=== PATIENT | male | born 1990 | race Caucasian/White ===

== ENCOUNTER 2023-07-01 15:59 | Outpatient (CLI) | payer BC, SELFPAY ==
[2023-07-01 10:15] LABS: Abs Immature Grans 0.03 10^3/uL (0.0-0.06); Absolute Basophil Count 0.03 10^3/uL (0.0-0.2); Absolute Eosinophil Count 0.12 10^3/uL (0.0-0.7); Absolute Lymphocyte Count 1.39 10^3/uL (1.2-3.4); Basophils % 0.5; HCT 42.9 % (40.0-50.0); HGB 14.8 g/dL (13.5-17.5); Immature Grans % 0.5; Lymphocytes % 22.9; MCH 31.8 pg (27.0-33.0); MCHC 34.5 % (32.0-36.0); MCV 92 fL (80-95); MPV 10.8 fL (8.0-11.0); Monocytes % 8.2; Neutrophils % 65.9; Platelet Count 151 10^3/uL (130-400); RBC 4.65 10^6/uL (4.36-5.78); RDW 12.6 % (11.8-14.1); RDW-SD 42.6 fL; WBC 6.07 10^3/uL (4.4-10.8)
[2023-07-01 11:01] LABS: ALT 84 U/L (16-63); AST 36 U/L (15-37); Alkaline Phosphatase 88 U/L (46-116); Anion Gap 8.9 mmol/L (3-11); BUN 17 mg/dL (7-18); Bilirubin, Total 0.4 mg/dL (0.2-1.0); CO2 28.1 mmol/L (21.0-32.0); CREATININE 1.1 mg/dL (0.70-1.30); Calcium 9.2 mg/dL (8.5-10.1); Calculated LDL 133 mg/dL (<100); Chloride 105 mmol/L (98-107); Cholesterol 214 mg/dL (<200); Glucose 107 mg/dL (74-106); HDL Cholesterol 37 mg/dL (40-60); Potassium 3.6 mmol/L (3.5-5.1); Sodium 142 mmol/L (136-145); Total Protein 7.3 g/dL (6.4-8.2); Triglyceride 220 mg/dL (<150)
[2023-07-01 11:52] LABS: TSH (W/Ref FT4) 191.54 uIU/mL (0.36-3.74)
[2023-07-01 12:19] LABS: FREE T4 0.38 ng/dL (0.76-1.46)
== END 2023-07-01 16:00 | disposition home or self-care (01) ==
LOC: LBO 16:01
PROVIDERS: Visit Provider Nurse Practitioner Family
DX: Z13.6 Encounter for screening for cardiovascular disorders (principal); E78.5 Hyperlipidemia, unspecified; I10 Essential (primary) hypertension; Z00.00 Encounter for general adult medical examination without abnormal findings
CPT/HCPCS: 36415; 80053; 80061; 84439; 84443; 85025

== ENCOUNTER 2023-07-16 16:34 | Emergency (ER) | payer BC, SELFPAY ==
[2023-07-16 16:41] VITALS: BP 127/87; PULSE 106; RESP 16; TEMP 36.2; O2SAT 98
--- NOTE | 2023-07-16 16:45 | DI.RAD_ITS ---
Exam(s) XR CHEST 2V PA LATERAL EXAM: XR CHEST 2V PA LATERAL CLINICAL HISTORY: Cough. TECHNIQUE: 2D digital imaging was performed. COMPARISON: No exams were available for comparison FINDINGS: 2 views: Heart size is normal. The mediastinum is not widened. Lungs are clear. No infiltrates nor pleural effusions. IMPRESSION: No acute pulmonary findings. DATA REPOSITORY: RADIATION DOSE DELIVERED:
--- NOTE | 2023-07-16 17:00 | ED.GENADUL_ITS ---
Discharge Plan Disposition Patient Disposition: Home Condition: Stable Discharge Details Clinical Impression: Influenza B Primary Care Provider: Gabrielle Gandhi ED Provider: Diana Carias Home Meds and New Rx's Prescriptions: New oseltamivir [Tamiflu] 75 mg capsule 75 mg PO BID 5 Days Qty: 10 0RF Continued Aspirin/Acetaminophen/Caffeine [Excedrin Extra Strength Caplet] 1 EACH Tablet 1 ea PO DAILY cyclobenzaprine 10 MG tablet 10 mg PO HS PRN (Reason: Muscle Spasm) Qty: 10 0RF ibuprofen 600 MG tablet 600 mg PO Q6H PRN (Reason: Pain) Qty: 20 0RF levothyroxine 25 mcg tablet 25 mcg PO DAILY Patient Comments: TAKE ONE TABLET BY MOUTH EVERY MORNING benzonatate 100 mg capsule 100 mg PO PRN Patient Comments: TAKE ONE CAPSULE BY MOUTH FOUR TIMES A DAY NEEDED FOR COUGH codeine-guaifenesin 10-100 mg/5 mL liquid 5 ml PO PRN Hold Instructions: Pt Stopped/Never Started Patient Comments: TAKE 15ML BY MOUTH EVERY 4 TO 6 HOURS NEEDED (MAX 90ML PER 24 HOURS) methylprednisolone 4 mg tablets,dose pack 4 mg PO DAILY Patient Comments: FOLLOW PACKAGE DIRECTIONS FOR 6 DAYS albuterol sulfate 90 mcg/actuation HFA aerosol inhaler 2 puff INHALATION QID Patient Comments: INHALE TWO PUFFS BY MOUTH FOUR TIMES A DAY NEEDED FOR COUGH, WHEEZE, AND SHORTNESS OF BREATH cefdinir 300 mg capsule 300 mg PO BID Patient Comments: TAKE ONE CAPSULE BY MOUTH TWICE A DAY FOR 10 DAYS Discharge Instructions Instructions: Influenza (ED) Additional Instructions: The swab was positive for Influenza B. This is a virus. Continue your previously prescribed medications. Follow up with primary care provider in 3-5 days. Return to ED sooner if any worsening or concerns. Please take Tylenol or Ibuprofen with food every 4-6 hours as needed for pain and swelling. Stand Alone Forms: Work Release Referrals: Gabrielle Gandhi [Primary Care Provider] - 5 days Discharge Data Discharge Date/Time-TO BE ENTERED AT DEPARTURE: 07/16/23 18:08 HPI General Mode of arrival: ambulatory . Date/Time Provider Initiated Documentation: 07/16/23 16:45 . Limitations to Documentation: no limitations . Information obtained by: patient, RN notes reviewed and old records reviewed . HPI Narrative: 33 year old female presents with 3 plus weeks of URI type symptoms. Began antibiotics yesterday. Associated with throat swelling, productive cough , fatigue, body aches and trouble sleeping. Has tried multiple cough suppressants and inhalers with little to no relief. Related Data Home Medications Medication Instructions Recorded Confirmed Aspirin/Acetaminophen/Caffeine 1 ea PO DAILY 03/19/17 07/16/23 [Excedrin Extra Strength Caplet] cyclobenzaprine 10 mg tablet 10 mg PO HS PRN Muscle Spasm #10 03/19/17 07/16/23 tabs ibuprofen 600 mg tablet 600 mg PO Q6H PRN Pain ##20 03/19/17 07/16/23 albuterol sulfate 90 mcg/actuation 2 puff inhalation QID 07/16/23 07/16/23 aerosol inhaler benzonatate 100 mg capsule 100 mg PO PRN 07/16/23 07/16/23 cefdinir 300 mg capsule 300 mg PO BID 07/16/23 07/16/23 codeine 10 mg-guaifenesin 100 mg/5 5 ml PO PRN 07/16/23 07/16/23 mL oral liquid levothyroxine 25 mcg tablet 25 mcg PO DAILY 07/16/23 07/16/23 methylprednisolone 4 mg tablets in 4 mg PO DAILY 07/16/23 07/16/23 a dose pack oseltamivir 75 mg capsule (Tamiflu) 75 mg PO BID 5 days #10 caps 07/16/23 Previous Rx's Medication Instructions Recorded cyclobenzaprine 10 mg tablet 10 mg PO HS PRN Muscle Spasm #10 03/19/17 tabs ibuprofen 600 mg tablet 600 mg PO Q6H PRN Pain ##20 03/19/17 oseltamivir 75 mg capsule (Tamiflu) 75 mg PO BID 5 days #10 caps 07/16/23 Allergies Allergy/AdvReac Type Severity Reaction Status Date / Time No Known Allergies Allergy Unverified 07/16/23 16:36 General Stated Complaint: RespSymp GRUPO: 3 Review of Systems All systems reviewed & are unremarkable except as noted in HPI and below ENT Ears, Nose, Mouth, and Throat: Reports throat swelling Cardiovascular Cardiovascular: Reports dyspnea Respiratory Respiratory: Reports as per HPI, Reports chest congestion, Reports cough, Reports excessive phlegm production and Reports dyspnea Allergic/Immunologic Allergic/Immunologic: Reports throat swelling Exam Narrative Exam Narrative: Constitutional: Alert and oriented x3. Appears stated age. Normal body habitus. Head: Normocephalic, no trauma. Eyes: Pupils PERRL, Red reflex noted, EOM's intact. Eyelids symmetrical without lesions, discharge, or swelling. ENT: Bilateral TM's WNL, External ear normal to inspection, no mastoid TTP, swelling, or erythema, Nasal turbinates WNL, no nasal discharge. Normal dentition, Posterior pharynx WNL, no exudate. Chest: RRR, Normal S1, S2, distal pulses intact. Resp: Lungs clear to auscultation bilaterally, no wheezes, rales, or rhonchi. Abdomen: Soft, non-distended, Normoactive bowel sounds all 4 quads. Musculoskeletal: Normal gait, 5/5 strength to all four extremities. Skin: No suspicious rashes or lesions. Capillary refill less than 2 sec. Neurologic: Cranial nerves II-XII intact. Alert and oriented x 3. Motor: No deficits noted. Sensory: Intact bilaterally all 4 extremities. Reflexes: DTR's intact bilaterally.. Hematologic/Lymphatic: No ecchymosis, no lymphadenopathy. Course Vital Signs Vital signs: Vital Signs Temperature 36.2 C L 07/16/23 16:41 Pulse 106 H 07/16/23 16:41 Respiratory Rate 16 07/16/23 16:41 Blood Pressure 127/87 07/16/23 16:41 Pulse Oximetry 98 07/16/23 16:41 Temperature 36.2 C L 07/16/23 16:41 Temperature Source Temporal Artery Scan 07/16/23 16:41 Pulse 106 H 07/16/23 16:41 Respiratory Rate 16 07/16/23 16:41 Respiratory Effort Normal, Non-Labored 07/16/23 16:43 Blood Pressure 127/87 07/16/23 16:41 Blood Pressure Position Sitting 07/16/23 16:41 Pulse Oximetry 98 07/16/23 16:41 Oxygen Delivery Method Room Air 07/16/23 16:41 Oxygen Flow Rate 0 07/16/23 16:41 Pain Level 9 07/16/23 16:41 Medical Decision Making 33 year old female presents with 3 plus weeks of URI type symptoms. Began antibiotics yesterday. Associated with throat swelling, productive cough , fatigue, body aches and trouble sleeping. Has tried multiple cough suppressants and inhalers with little to no relief. Chest x-ray Fluvid swab ordered. influenza B positive. Chest x-ray within normal limits. Patient to be discharged with Tamiflu This text was generated using [email or web address] dictation system, please disregard any oddities of phrase or misspellings. Imaging Data Radiologic Study: Imaging: X-Ray Radiologist's impression: Exam(s) XR CHEST 2V PA LATERAL EXAM: XR CHEST 2V PA LATERAL CLINICAL HISTORY: Cough. TECHNIQUE: 2D digital imaging was performed. COMPARISON: No exams were available for comparison FINDINGS: 2 views: Heart size is normal. The mediastinum is not widened. Lungs are clear. No infiltrates nor pleural effusions. IMPRESSION: No acute pulmonary findings. Quality:SDOH Health Related Social Needs: No Data to Display PFSH All Active Problems (Updated 07/16/23 @ 17:55 by Diana Carias NP) Influenza B (Acute) Social History Smoking/Tobacco Use Status: Current every day Tobacco Type: cigarettes Smoking risk assessment performed?: Yes Alcohol Intake: current Alcohol Intake frequency: holidays/special occasions only Drug use: Never Substance use type: does not use Housing: apartment Do you feel safe in your relationship?: Yes
[2023-07-16 17:51] LABS: COVID-19 PCR Negative (Negative); Influenza A PCR Negative (Negative); Influenza B PCR Positive (Negative); RSV PCR Negative (Negative)
[2023-07-16 17:53] LABS: Source Nasopharynx
[2023-07-16] MEDS: Oseltamivir 75 MG CAP PO (18:08)
== END 2023-07-16 18:08 | disposition home or self-care (01) ==
PROVIDERS: Emergency Provider Registered Nurse Emergency; PCP Nurse Practitioner Family
DX: J10.1 Influenza due to other identified influenza virus with other respiratory manifestations
CPT/HCPCS: 87637; 99284; 71046; 99283

== ENCOUNTER 2023-07-27 09:38 | Outpatient (CLI) | payer BC, SELFPAY ==
[2023-07-27 11:28] LABS: ALT 104 U/L (16-63); AST 44 U/L (15-37); Albumin 3.6 g/dL (3.4-5.0); Alkaline Phosphatase 107 U/L (46-116); Anion Gap 11.4 mmol/L (3-11); BUN 16 mg/dL (7-18); Bilirubin, Total 0.3 mg/dL (0.2-1.0); CO2 26.6 mmol/L (21.0-32.0); CREATININE 1.1 mg/dL (0.70-1.30); Calcium 9.1 mg/dL (8.5-10.1); Chloride 106 mmol/L (98-107); Glucose 99 mg/dL (74-106); Potassium 4.6 mmol/L (3.5-5.1); Sodium 144 mmol/L (136-145); TSH (W/Ref FT4) 36.25 uIU/mL (0.36-3.74); Total Protein 7.4 g/dL (6.4-8.2)
[2023-07-27 11:45] LABS: FREE T4 0.64 ng/dL (0.76-1.46)
== END 2023-07-27 09:39 | disposition home or self-care (01) ==
LOC: LBO 09:38
PROVIDERS: PCP Nurse Practitioner Family; Visit Provider Nurse Practitioner Family
DX: E03.9 Hypothyroidism, unspecified (principal); I10 Essential (primary) hypertension
CPT/HCPCS: 36415; 80053; 84439; 84443

== ENCOUNTER 2023-11-12 22:11 | Outpatient (REF) | payer SELFPAY ==
[2023-11-12 17:07] LABS: TSH (W/Ref FT4) 89.95 uIU/mL (0.36-3.74)
[2023-11-12 17:39] LABS: FREE T4 0.71 ng/dL (0.76-1.46)
== END 2023-11-12 22:12 | disposition home or self-care (01) ==
LOC: LBN 22:11
PROVIDERS: PCP Nurse Practitioner Family; Visit Provider Nurse Practitioner Family
DX: R94.6 Abnormal results of thyroid function studies (principal)
CPT/HCPCS: 84439; 84443

== ENCOUNTER 2025-01-13 15:17 | Outpatient (CLI) | payer SELFPAY ==
[2025-01-13 20:00] LABS: HBs Antibody, Quant 263.6 mIU/mL (See Note); Hepatitis B Surface Ab Positive (See Note)
[2025-01-15 12:03] LABS: TB Interpretation Negative (Negative); TB1 Ag minus Nil 0.24 IU/mL; TB2 Ag minus Nil 0.22 IU/mL
[2025-01-16 10:49] LABS: Rubella IgG Ab (UVM) Positive (See Note)
== END 2025-01-13 15:18 | disposition home or self-care (01) ==
LOC: LBO 15:18
PROVIDERS: PCP Nurse Practitioner Family; Visit Provider Student in an Organized Health Care Education/Training Program
DX: Z02.1 Encounter for pre-employment examination (principal)
CPT/HCPCS: 36415; 86706; 86787; 87340; 86480; 86735; 86762; 86765